=== PATIENT | female | born 1950 | race Two or more races ===

== ENCOUNTER 2019-11-30 17:00 | Emergency (ER) | payer MEDICAID ==
[~2019-11-30] VITALS: Ht 157.5 cm; Wt 72.6 kg
--- NOTE | 2019-11-30 17:20 | NUR ---
[id number], c/o head, bilateral knee and face pain s/p tripped and fall going. Patient a/ox4, breathing even and unlabored, no sob noted, kept comfortable.
[2019-11-30] MEDS ORDERED: TDAP [DIPH/PERTUSSIS/TET] 0.5 ML VIAL IM ONE ×2 (17:42→18:00)
[2019-11-30] MEDS ORDERED: TRAMADOL HCL 50 MG TABLET ONE (17:42)
[2019-11-30] MEDS ORDERED: TRAMADOL HCL 50 MG TABLET PO ONE (18:00)
--- NOTE | 2019-11-30 18:12 | NUR ---
patient taken to CT.
--- NOTE | 2019-11-30 19:10 | NUR ---
REPORT RECEIVED FROM RAMESH BURNETTE TITO
--- NOTE | 2019-11-30 19:38 | NUR ---
HARLEY AMOR AT BEDSIDE
[2019-11-30] MEDS ORDERED: ACETAMINOPHEN ES 500 MG TABLET ONE (22:08)
[2019-11-30] MEDS ORDERED: ACETAMINOPHEN 325 MG TABLET PO ONE (22:30)
--- NOTE | 2019-11-30 22:36 | NUR ---
Patient discharged to home in stable condition. Written and verbal after care instructions given. Patient verbalizes understanding of instruction.
[2019-11-30 22:39] VITALS: BP 132/89
== END 2019-11-30 22:49 | disposition home or self-care (01) ==
LOC: ER 17:11
DX: S01.511A Laceration without foreign body of lip, initial encounter (principal); S80.212A Abrasion, left knee, initial encounter; S80.211A Abrasion, right knee, initial encounter; S09.8XXA Other specified injuries of head, initial encounter; I10 Essential (primary) hypertension; E11.9 Type 2 diabetes mellitus without complications; W01.0XXA Fall on same level from slipping, tripping and stumbling without subsequent striking against object, initial encounter; Y93.89 Activity, other specified; Y92.89 Other specified places as the place of occurrence of the external cause; Y99.8 Other external cause status
CPT/HCPCS: 70450-TC; 70486-TC; 72125-TC; 73564-TC; 90715